=== PATIENT | male | born 1965 | race Caucasian/White ===

== ENCOUNTER → 2024-08-27 15:55 | Outpatient (REF) | payer OTHER, SELFPAY | LOC: HWRAD 15:55 | PROVIDERS: ATTENDING PHYSICIAN Physician Assistant Medical | DX: M54.42 Lumbago with sciatica, left side (principal) | CPT/HCPCS: 72110 ==

== ENCOUNTER → 2024-11-11 09:50 | Outpatient (REF) | payer OTHER, SELFPAY | LOC: MRI 3T 09:50 | PROVIDERS: ATTENDING PHYSICIAN Specialist; FAMILY PHYSICIAN Physician Assistant Medical | DX: R97.20 Elevated prostate specific antigen [PSA] (principal) | CPT/HCPCS: 72197; A9575 ==